=== PATIENT | female | born 1990 | race Caucasian/White ===

== ENCOUNTER 2016-06-30 02:51 | Emergency (ER) | payer OTHER | END 2016-06-30 03:00 | disposition home or self-care (01) | LOC: CED 02:51 | DX: S00.03XA Contusion of scalp, initial encounter (principal); S10.93XA Contusion of unspecified part of neck, initial encounter; V69.60XA Unspecified occupant of heavy transport vehicle injured in collision with unspecified motor vehicles in traffic accident, initial encounter; Y92.410 Unspecified street and highway as the place of occurrence of the external cause | CPT/HCPCS: 84703; 90471; 90715; 99283 ==